=== PATIENT | male | born 1980 | race Caucasian/White ===

== ENCOUNTER 2019-07-27 09:25 | Emergency (ER) | payer MEDICAID ==
[~2019-07-27] VITALS: Ht 180.3 cm; Wt 109.5 kg
[2019-07-27 09:28] VITALS: BP 156/100
--- NOTE | 2019-07-27 09:34 | NUR ---
Patient ambulated to bed 2. RN evaluating patient at bedside.
--- NOTE | 2019-07-27 09:35 | NUR ---
RECIEVED PATIENT FROM TRIAGE, AAOX4, SKIN W/D TO TOUCH SNYDER, PLACED IN A GOWN. STATES HE IS HERE BECAUSE OF RIGHT UPPER QUADRANT PAIN. LUNGS AUSC CLEAR BILAT, RIGHT UPPER QUADRANT AREA ONLY HAS PAIN TO TOUCH 7/10, C/O EXCESS STRESS IN HIS LIFE AT PRESENT. PRESENT HX ETOH ABUSE, AND MARIJUANA; PREVIOUS HX OF METH USE APROX 5 YEARS AGO. PENDING MD SAMSON
--- NOTE | 2019-07-27 09:45 | NUR ---
SEEN BY DR DESIR AT BS.
--- NOTE | 2019-07-27 10:00 | NUR ---
URINE COLLECTED, LABS DRAWN BY LAB. PT IS FRIENDLY AND IN GOOD SPIRITS, VOICES NO C/O PAIN AT PRESENT.
[2019-07-27 10:10] LABS: APPEARANCE,URINE CLEAR (CLEAR); BILIRUBIN,URINE NEGATIVE (NEGATIVE); BLOOD, URINE NEGATIVE (NEGATIVE); COLOR,URINE YELLOW (YELLOW); LEUKOCYTE ESTERASE ,URINE NEGATIVE (NEGATIVE); NITRITE, URINE NEGATIVE (NEGATIVE); PH,URINE 7.5 (5.0-9.0); UGLUCOSE NEGATIVE (NEGATIVE)
[2019-07-27 10:16] LABS: BASOPHILS # (AUTO) 0.1 K/uL (0.00-0.22); BASOPHILS % (AUTO) 0.8 % (0.0-2.0); EOSINOPHILS # (AUTO) 0.1 K/uL (0-0.4); EOSINOPHILS % (AUTO) 0.9 % (0.0-4.0); HEMATOCRIT 47.3 % (36-52); LYMPHOCYTES # (AUTO) 2.6 K/uL (2.0-11.5); LYMPHOCYTES % (AUTO) 35.7 % (20.5-51.1); MEAN CORPUSCULAR HEMOGLOBIN 30 pg (27-31); MEAN CORPUSCULAR HGB CONC 34 g/dL (33-37); MEAN CORPUSCULAR VOLUME 87.8 fL (80-94); MONOCYTES # (AUTO) 0.6 K/uL (0.8-1.0); NEUTROPHILS % (AUTO) 54.6 % (42.2-75.2); PLATELET COUNT (AUTO) 246 K/uL (140-450); RED BLOOD CELL COUNT(AUTO) 5.39 MIL/uL (4.20-6.10); RED CELL DISTRIBUTION WIDTH 13.1 % (11.6-13.7); WHITE BLOOD COUNT (AUTO) 7.3 K/uL (4.8-10.8)
[2019-07-27 10:25] LABS: ALBUMIN 4.3 g/dL (3.4-5.0); ANION GAP 11.8 (8-16); CARBON DIOXIDE 28.2 mmol/L (21-32); CREATININE 1.1 mg/dL (0.7-1.3); TOTAL BILIRUBIN 0.4 mg/dL (0.0-1.0)
--- NOTE | 2019-07-27 11:37 | NUR ---
Patient discharged with v/s stable. Written and verbal after care instructions given and explained. Patient verbalized understanding. Ambulatory with steady gait. All questions addressed prior to discharge. Advised to follow up with PMD.
[2019-07-27 11:39] VITALS: BP 131/78
== END 2019-07-27 11:37 | disposition home or self-care (01) ==
LOC: MED 09:25
DX: K29.70 Gastritis, unspecified, without bleeding (principal); F12.90 Cannabis use, unspecified, uncomplicated; J45.909 Unspecified asthma, uncomplicated; Z88.0 Allergy status to penicillin; Z90.49 Acquired absence of other specified parts of digestive tract; Z98.890 Other specified postprocedural states
CPT/HCPCS: 36415; 76705; 80053; 81003; 83690; 85025; 99284; Q0092